=== PATIENT | male | born 1970 | race Caucasian/White ===

== ENCOUNTER 2017-04-16 06:35 | Emergency (ER) | payer SELFPAY ==
[~2017-04-16] VITALS: Ht 165.1 cm; Wt 82.0 kg
[2017-04-16] MEDS ORDERED: ONDANSETRON HCL 4MG/2ML VIAL IV STA (12:47)
[2017-04-16] MEDS ORDERED: MORPHINE SULFATE 4 MG/ML CPJ (NOT FOR IM USE) IV STA (12:47)
[2017-04-16] MEDS ORDERED: SODIUM CHLORIDE 0.9% 1,000 ML IV ONE (12:47)
[2017-04-16 13:12] LABS: BASOPHILS % 0.6 % (0.0-2.0); EOSINOPHILS % 0.3 % (0.0-5.0); HEMATOCRIT. 43.5 % (42.0-52.0); HEMOGLOBIN. 14.4 g/dL (14.0-18.0); LYMPHOCYTES % 17.7 % (20.0-50.0); MEAN CORPUSCULAR HEMOGLOBIN 30.7 pg (28.0-32.0); MEAN CORPUSCULAR VOLUME 92.4 fL (80.0-94.0); MEAN PLATELET VOLUME 7.8 fl (7.4-10.4); MONOCYTES % 11.7 % (2.0-8.0); NEUTROPHILS % 69.7 % (40.0-76.0); PLATELET 455 x1000/uL (130-400); RED CELL DISTRIBUTION WIDTH 13.2 % (11.6-14.6)
[2017-04-16 13:13] LABS: INR 1.2; PROTHROMBIN TIME 12.3 sec (9.4-11.6)
[2017-04-16 13:14] VITALS: BP 141/87
[2017-04-16 13:16] LABS: CARBON DIOXIDE 28 mEq/L (21-32); CHLORIDE 98 mEq/L (98-107)
[2017-04-16] MEDS ORDERED: IOHEXOL-300 100 ML BOTTLE ONE (14:23)
[2017-04-16] MEDS ORDERED: LIDOCAINE HCL 1% 20ML VIAL (Pyxis) INJ MC ONE (15:00)
[2017-04-16] MEDS ORDERED: LIDOCAINE/EPINEPHR/TETRACAINE 3ML TP ONE (15:00)
== END 2017-04-16 18:28 | disposition home or self-care (01) ==
LOC: EDBD → ER 06:35
DX: K61.0 Anal abscess (principal); D72.829 Elevated white blood cell count, unspecified; R79.1 Abnormal coagulation profile
CPT/HCPCS: 36415; 46050; 74177; 80053; 83690; 85025; 85610; 96374; 96375; 99285; J2270; J2405; J3490; J7030; Q9967; Z7610

== ENCOUNTER 2017-04-19 10:02 | Inpatient (IN) | payer SELFPAY ==
[~2017-04-19] VITALS: Ht 312.4 cm; Wt 89.8 kg
[2017-04-19] MEDS ORDERED: MORPHINE SULFATE 4 MG/ML CPJ (NOT FOR IM USE) IV STA (11:34)
[2017-04-19] MEDS ORDERED: ONDANSETRON HCL 4MG/2ML VIAL IV STA (11:34)
[2017-04-19] MEDS ORDERED: PIPERACILLIN/TAZ 3.375G PREMIX 50 ML IV ONE (11:39)
[2017-04-19] MEDS ORDERED: VANCOMYCIN 1 G PREMIX 200 ML IV SCH (11:45)
[2017-04-19] MEDS ORDERED: PIPERACILLIN/TAZOBACTAM 3.375GM/50ML PREMIX IV ONE (11:45)
[2017-04-19 12:15] LABS: BASOPHILS % 0.3 % (0.0-2.0); EOSINOPHILS % 0.4 % (0.0-5.0); HEMATOCRIT. 44.3 % (42.0-52.0); HEMOGLOBIN. 14.6 g/dL (14.0-18.0); LYMPHOCYTES % 10.3 % (20.0-50.0); MEAN CORPUSCULAR HEMOGLOBIN 31.1 pg (28.0-32.0); MEAN CORPUSCULAR VOLUME 94.4 fL (80.0-94.0); MEAN PLATELET VOLUME 7.9 fl (7.4-10.4); MONOCYTES % 7.4 % (2.0-8.0); NEUTROPHILS % 81.6 % (40.0-76.0); PLATELET 388 x1000/uL (130-400); RED BLOOD CELL COUNT 4.69 mill/uL (4.7-6.1); RED CELL DISTRIBUTION WIDTH 13.5 % (11.6-14.6)
[2017-04-19] MEDS ORDERED: ACETAMINOPHEN 325MG TABLET PO PRN (12:30)
[2017-04-19] MEDS ORDERED: MORPHINE SULFATE 4 MG/ML CPJ (NOT FOR IM USE) IV PRN ×3 (12:30→13:15)
[2017-04-19] MEDS ORDERED: ONDANSETRON HCL 4MG/2ML VIAL IV PRN ×3 (12:30→15:00)
[2017-04-19] MEDS ORDERED: HYDROCODONE/ACETAMINOPHEN 5/325MG TABLET PO PRN ×2 (12:30→13:15)
[2017-04-19] MEDS ORDERED: PIPERACILLIN/TAZ 3.375G PREMIX 50 ML IV SCH (12:30)
[2017-04-19 12:34] LABS: CARBON DIOXIDE 27 mEq/L (21-32); CHLORIDE 96 mEq/L (98-107)
[2017-04-19 13:00] LABS: CLARITY URINE CLEAR (CLEAR); COLOR URINE DARK YELLOW (YELLOW); KETONES URINE TRACE (NEGATIVE); LEUKOCYTE ESTERASE URINE TRACE (NEGATIVE); NITRITE URINE POSITIVE (NEGATIVE); OCCULT BLOOD URINE NEGATIVE (NEGATIVE); PROTEIN URINE 1+ (NEGATIVE)
[2017-04-19] MEDS ORDERED: MIDAZOLAM HCL 2 MG/2 ML VIAL ONE (14:49)
[2017-04-19] MEDS ORDERED: FENTANYL CITRATE/PF 50MCG/ML 2ML VIAL ONE ×2 (14:49→15:01)
[2017-04-19] MEDS ORDERED: LABETALOL 5MG/ML SYR 20 MG/4 ML SYRINGE IV PRN (15:00)
[2017-04-19] MEDS ORDERED: MEPERIDINE HCL/PF 25MG/ML CPJ IV PRN (15:00)
[2017-04-19] MEDS ORDERED: HYDROMORPHONE HCL/PF 2MG/ML CPJ IV PRN (15:00)
[2017-04-19] MEDS ORDERED: PROPOFOL 200MG/20ML VIAL IV ONE (15:46)
[2017-04-19 18:00] VITALS: BP 137/71
[2017-04-19 20:00] VITALS: BP 119/72
[2017-04-19 21:00] VITALS: BP 119/72
[2017-04-19] MEDS: DEXT 5%/0.45% NACL KCL 20MEQ/L 1,000 ML IV SCH (21:52)
[2017-04-19] MEDS: PIPERACILLIN/TAZ 3.375G PREMIX 50 ML IV SCH (21:52)
[2017-04-20] VITALS: BP 103/54
[2017-04-20] MEDS: HYDROCODONE/ACETAMINOPHEN 5/325MG TABLET PO PRN ×4 (00:24→19:27)
[2017-04-20] MEDS: PIPERACILLIN/TAZ 3.375G PREMIX 50 ML IV SCH ×4 (03:54→20:27)
[2017-04-20 04:00] VITALS: BP 110/64
[2017-04-20 07:46] VITALS: BP 122/72
[2017-04-20 08:27] LABS: BASOPHILS % 0.1 % (0.0-2.0); EOSINOPHILS % 0.1 % (0.0-5.0); HEMATOCRIT. 38.5 % (42.0-52.0); HEMOGLOBIN. 12.6 g/dL (14.0-18.0); MEAN CORPUSCULAR HEMOGLOBIN 30.7 pg (28.0-32.0); MEAN CORPUSCULAR VOLUME 93.5 fL (80.0-94.0); MEAN PLATELET VOLUME 8.1 fl (7.4-10.4); NEUTROPHILS % 77.8 % (40.0-76.0); PLATELET 378 x1000/uL (130-400); RED BLOOD CELL COUNT 4.12 mill/uL (4.7-6.1); RED CELL DISTRIBUTION WIDTH 13.3 % (11.6-14.6)
[2017-04-20] MEDS: DEXT 5%/0.45% NACL KCL 20MEQ/L 1,000 ML IV SCH (09:28)
[2017-04-20] MEDS ORDERED: DEXTROSE 50% WATER 50ML SYRINGE IV PRN (12:00)
[2017-04-20] MEDS ORDERED: INFLUENZA VIRUS VACCINE 0.5ML SYR IM ONE (12:00)
[2017-04-20] MEDS: BLOOD SUGAR DIAGNOSTIC STRIP TEST SCH ×3 (12:31→20:28)
[2017-04-20] MEDS: INSULIN LISPRO 100 UNITS/ML SUBCUT SCH ×3 (12:51→20:28)
[2017-04-20] MEDS ORDERED: CLIN300C11 PO (12:56)
[2017-04-20] MEDS ORDERED: METF10002 PO (12:56)
[2017-04-20 20:00] VITALS: BP 121/73
[2017-04-21] VITALS: BP 133/77
[2017-04-21] MEDS: PIPERACILLIN/TAZ 3.375G PREMIX 50 ML IV SCH ×3 (02:15→15:00)
[2017-04-21 02:38] VITALS: BP 142/81
[2017-04-21 04:00] VITALS: BP 122/75
[2017-04-21] MEDS: HYDROCODONE/ACETAMINOPHEN 5/325MG TABLET PO PRN ×2 (04:45→09:29)
[2017-04-21] MEDS: DEXT 5%/0.45% NACL KCL 20MEQ/L 1,000 ML IV SCH ×2 (05:57→12:01)
[2017-04-21] MEDS: BLOOD SUGAR DIAGNOSTIC STRIP TEST SCH ×2 (06:32→12:01)
[2017-04-21] MEDS: INSULIN LISPRO 100 UNITS/ML SUBCUT SCH ×2 (07:49→12:01)
[2017-04-21 08:00] VITALS: BP 124/73
[2017-04-21 12:00] VITALS: BP 142/81
[2017-04-21 16:00] VITALS: BP 134/80
== END 2017-04-21 16:55 | disposition home or self-care (01) | DRG 710 ==
LOC: ER 10:58 → EDBD 12:21 → ORIP 12:21 → EDBEDREQ 12:22 → 6EST 18:24
PROVIDERS: ADMIT Internal Medicine; ATTEND Internal Medicine
PROC: 0D9P0ZZ Drainage of Rectum, Open Approach (ICD-10-PCS; principal; 2017-04-19 14:00)
DX: A41.9 Sepsis, unspecified organism (principal); E44.0 Moderate protein-calorie malnutrition; E11.9 Type 2 diabetes mellitus without complications; Z68.1 Body mass index [BMI] 19.9 or less, adult; E87.1 Hypo-osmolality and hyponatremia; K57.90 Diverticulosis of intestine, part unspecified, without perforation or abscess without bleeding; N39.0 Urinary tract infection, site not specified; K61.2 Anorectal abscess
CPT/HCPCS: 36415; 80053; 81001; 82962; 83036; 85025; 87040; 87070; 87075; 87086; 87186; 87205; 90686; 96365; 96367; 96368; 96375; 99285; J1815; J2250; J2270; J2405; J2543; J2704; J3010; J3370; J7030

== ENCOUNTER 2017-04-28 10:31 | Emergency (ER) | payer SELFPAY ==
[~2017-04-28] VITALS: Ht 167.6 cm; Wt 86.0 kg
[~2017-04-28 10:31] MED LIST: CLIN300C11 PO; METF10002 PO
[2017-04-28 12:34] VITALS: BP 129/81
== END 2017-04-28 12:35 | disposition home or self-care (01) ==
LOC: ER 12:03
DX: Z48.817 Encounter for surgical aftercare following surgery on the skin and subcutaneous tissue (principal)
CPT/HCPCS: 99281

== ENCOUNTER 2017-04-30 09:28 | Emergency (ER) | payer SELFPAY ==
[~2017-04-30] VITALS: Ht 154.9 cm; Wt 86.0 kg
[2017-04-30 09:31] VITALS: BP 118/69
[2017-04-30] MEDS ORDERED: BACITRACIN ZINC OINT UDPKT TOP ONE ×2 (13:15→13:30)
== END 2017-04-30 14:59 | disposition home or self-care (01) ==
LOC: ER 09:31
DX: L02.31 Cutaneous abscess of buttock (principal); E11.9 Type 2 diabetes mellitus without complications
CPT/HCPCS: 99283; X7700; Z7610

== ENCOUNTER 2020-07-17 20:31 | Inpatient (IN) | payer MEDICAID, OTHER ==
[~2020-07-17] VITALS: Ht 160 cm; Wt 80.1 kg
[~2020-07-17 20:31] MED LIST changes: -CLIN300C11 PO; +CLIN300C12 PO; +METF-416 PO; -METF10002 PO
[2020-07-17] MEDS ORDERED: DICYCLOMINE 10 MG/5 ML ORAL SYR PO STA (21:25)
[2020-07-17] MEDS ORDERED: MAGNESIUM/ALUMINUM HYDROXIDE/SIMETHICONE 30ML UDC PO STA (21:25)
[2020-07-17 22:46] LABS: HEMATOCRIT. 25.4 % (42.0-52.0); HEMOGLOBIN. 8.3 g/dL (14.0-18.0); MEAN CORPUSCULAR HEMOGLOBIN 24.2 pg (28.0-32.0); MEAN CORPUSCULAR VOLUME 74.4 fL (80.0-94.0); MEAN PLATELET VOLUME 8.5 fl (7.4-10.4); PLATELET 194 x1000/uL (130-400); RED BLOOD CELL COUNT 3.42 mill/uL (4.7-6.1); RED CELL DISTRIBUTION WIDTH 20.1 % (11.6-14.6)
[2020-07-17 22:53] LABS: CHLORIDE 96 mEq/L (98-107)
[2020-07-17 22:58] LABS: CLARITY URINE CLEAR (CLEAR); COLOR URINE ORANGE (YELLOW); KETONES URINE TRACE (NEGATIVE); LEUKOCYTE ESTERASE URINE 1+ (NEGATIVE); NITRITE URINE NEGATIVE (NEGATIVE); OCCULT BLOOD URINE NEGATIVE (NEGATIVE); PH URINE 5.5 (4.5-8.0); PROTEIN URINE 2+ (NEGATIVE); SPECIFIC GRAVITY URINE 1.028 (1.005-1.030)
[2020-07-17 23:07] LABS: PLATELET ESTIMATE NORMAL
[2020-07-18] MEDS ORDERED: ASPIRIN 325MG EC TABLET PO ONE (01:30)
[2020-07-18] MEDS ORDERED: CEFTRIAXONE 1 G PREMIX 50 ML IV ONE (01:30)
[2020-07-18] MEDS ORDERED: POTASSIUM CHLORIDE INJ 40 MEQ in DEXT 5% WATER 250 ML IV ONE (01:30)
[2020-07-18] MEDS ORDERED: POTASSIUM CHLORIDE 20MEQ TABLET SR PO ONE (01:30)
[2020-07-18 01:59] LABS: ETHANOL BLOOD 182 mg/dL
[2020-07-18 02:02] LABS: *AMPHETAMINES SCREEN URINE NEGATIVE (NEGATIVE); *BARBITURATES SCREEN URINE NEGATIVE (NEGATIVE); *BENZODIAZEPINES SCREEN URINE NEGATIVE (NEGATIVE); *COCAINE SCREEN URINE NEGATIVE (NEGATIVE); CANNABINOID URINE SCREEN NEGATIVE (NEGATIVE); METHADONE URINE SCREEN NEGATIVE (NEGATIVE); OPIATES URINE SCREEN NEGATIVE (NEGATIVE); PHENCYCLIDINE URINE SCREEN NEGATIVE (NEGATIVE)
[2020-07-18] MEDS ORDERED: MORPHINE SULFATE 2 MG/ML CPJ (NOT FOR IM USE) IV PRN (06:45)
[2020-07-18] MEDS: LORAZEPAM 2MG/ML CPJ IV PRN ×4 (07:26→20:42)
[2020-07-18] MEDS: SODIUM CHLORIDE 0.9% 1,000 ML IV SCH ×3 (08:30→21:28)
[2020-07-18 10:30] VITALS: BP 158/70
[2020-07-18] MEDS ORDERED: ACETAMINOPHEN 325MG TABLET PO PRN (11:45)
[2020-07-18] MEDS ORDERED: ONDANSETRON HCL 4MG/2ML INJ IV PRN (11:45)
[2020-07-18 12:34] LABS: TOTAL IRON BINDING CAPACITY 316 ug/dL (250-450)
[2020-07-18 12:44] LABS: FERRITIN 17 ng/mL (22-322)
[2020-07-18 12:56] LABS: HEPATITIS B SURFACE ANTIGEN NEGATIVE
[2020-07-18] MEDS: CHLORDIAZEPOXIDE 25MG CAPSULE PO SCH ×2 (13:08→21:28)
[2020-07-18] MEDS: THIAMINE HCL 100MG TABLET PO SCH (13:09)
[2020-07-18 13:33] VITALS: BP 158/70
[2020-07-18 14:25] LABS: HEPATITIS A AB IGM Equiv (NEGATIVE)
[2020-07-18 16:00] VITALS: BP 120/76
[2020-07-18] MEDS ORDERED: DEXTROSE 50% WATER 50ML SYRINGE IV PRN (17:45)
[2020-07-18] MEDS: BLOOD SUGAR DIAGNOSTIC STRIP TEST SCH ×2 (18:06→21:25)
[2020-07-18] MEDS: INSULIN LISPRO 100 UNITS/ML SUBCUT SCH ×2 (18:06→21:27)
[2020-07-18] MEDS: DOCUSATE SODIUM SUGAR FREE 100MG/10ML UDC PO SCH (18:06)
[2020-07-18] MEDS: FERROUS SULFATE 325MG TABLET PO SCH (18:08)
[2020-07-18 18:56] LABS: PHOSPHORUS 2.6 mg/dL (2.5-4.9)
[2020-07-18 20:00] VITALS: BP 128/66
[2020-07-18] MEDS ORDERED: MAGNESIUM 4 G PREMIX 100 ML IV NR (21:00)
[2020-07-18] MEDS: METOPROLOL TARTRATE 50MG TABLET PO SCH (21:25)
[2020-07-19] VITALS: BP 119/73
[2020-07-19] MEDS: LORAZEPAM 2MG/ML CPJ IV PRN ×4 (00:12→17:26)
[2020-07-19] MEDS ORDERED: HALOPERIDOL LACTATE 5MG/ML VIAL IM NR (02:15)
[2020-07-19] MEDS: SODIUM CHLORIDE 0.9% 1,000 ML IV SCH ×3 (03:50→18:00)
[2020-07-19 04:00] VITALS: BP 130/81
[2020-07-19] MEDS: CHLORDIAZEPOXIDE 25MG CAPSULE PO SCH ×3 (05:38→21:11)
[2020-07-19] MEDS: BLOOD SUGAR DIAGNOSTIC STRIP TEST SCH ×4 (06:38→21:13)
[2020-07-19] MEDS: INSULIN LISPRO 100 UNITS/ML SUBCUT SCH ×4 (06:38→21:13)
[2020-07-19 07:33] LABS: HEMATOCRIT. 25.8 % (42.0-52.0); MEAN CORPUSCULAR HEMOGLOBIN 23.8 pg (28.0-32.0); MEAN CORPUSCULAR VOLUME 76.8 fL (80.0-94.0); MEAN PLATELET VOLUME 9.7 fl (7.4-10.4); PLATELET 177 x1000/uL (130-400); RED BLOOD CELL COUNT 3.36 mill/uL (4.7-6.1); RED CELL DISTRIBUTION WIDTH 20.4 % (11.6-14.6)
[2020-07-19 08:00] VITALS: BP 133/86
[2020-07-19 08:03] LABS: CHLORIDE 96 mEq/L (98-107)
[2020-07-19 08:11] LABS: PHOSPHORUS 1.3 mg/dL (2.5-4.9)
[2020-07-19] MEDS: THIAMINE HCL 100MG TABLET PO SCH (08:33)
[2020-07-19] MEDS: FERROUS SULFATE 325MG TABLET PO SCH ×3 (08:33→17:26)
[2020-07-19] MEDS: METOPROLOL TARTRATE 50MG TABLET PO SCH ×2 (08:34→21:12)
[2020-07-19] MEDS: DOCUSATE SODIUM SUGAR FREE 100MG/10ML UDC PO SCH (08:34)
[2020-07-19] MEDS: HALOPERIDOL 5MG TABLET PO PRN (11:15)
[2020-07-19 11:51] LABS: PLATELET ESTIMATE NORMAL
[2020-07-19 12:00] VITALS: BP 141/75
[2020-07-19] MEDS ORDERED: POTASSIUM CHLORIDE 20MEQ TABLET SR PO NR (13:45)
[2020-07-19] MEDS ORDERED: POTASSIUM PHOS,M-BASIC-D-BASIC 20 MMOL in DEXT 5% WATER 243.3333 ML IV SCH (15:00)
[2020-07-19] MEDS: CEFTRIAXONE 1,000 MG in DEXTROSE 5% WATER 50 ML IV SCH (15:18)
[2020-07-19 16:00] VITALS: BP 128/76
[2020-07-19 20:00] VITALS: BP 132/88
[2020-07-20] VITALS: BP 128/70
[2020-07-20] MEDS: SODIUM CHLORIDE 0.9% 1,000 ML IV SCH ×5 (03:25→21:15)
[2020-07-20 04:00] VITALS: BP 139/80
[2020-07-20] MEDS: CHLORDIAZEPOXIDE 25MG CAPSULE PO SCH ×3 (05:26→22:11)
[2020-07-20 06:35] LABS: CHLORIDE 105 mEq/L (98-107)
[2020-07-20 06:40] LABS: PHOSPHORUS 1.9 mg/dL (2.5-4.9)
[2020-07-20] MEDS: BLOOD SUGAR DIAGNOSTIC STRIP TEST SCH ×4 (07:20→20:47)
[2020-07-20] MEDS: INSULIN LISPRO 100 UNITS/ML SUBCUT SCH ×4 (07:20→20:47)
[2020-07-20 07:45] LABS: BASOPHILS % 0.9 % (0.0-2.0); EOSINOPHILS % 0.9 % (0.0-5.0); HEMATOCRIT. 25.4 % (42.0-52.0); HEMOGLOBIN. 7.8 g/dL (14.0-18.0); LYMPHOCYTES % 15.5 % (20.0-50.0); MEAN CORPUSCULAR HEMOGLOBIN 23.8 pg (28.0-32.0); MEAN CORPUSCULAR VOLUME 77.7 fL (80.0-94.0); MEAN PLATELET VOLUME 9.7 fl (7.4-10.4); MONOCYTES % 9.3 % (2.0-8.0); NEUTROPHILS % 73.4 % (40.0-76.0); PLATELET 200 x1000/uL (130-400); RED BLOOD CELL COUNT 3.27 mill/uL (4.7-6.1); RED CELL DISTRIBUTION WIDTH 20.7 % (11.6-14.6)
[2020-07-20 08:00] VITALS: BP 139/82
[2020-07-20] MEDS: DOCUSATE SODIUM SUGAR FREE 100MG/10ML UDC PO SCH (08:57)
[2020-07-20] MEDS: FERROUS SULFATE 325MG TABLET PO SCH ×3 (08:57→18:40)
[2020-07-20] MEDS: THIAMINE HCL 100MG TABLET PO SCH (08:58)
[2020-07-20] MEDS: METOPROLOL TARTRATE 50MG TABLET PO SCH ×2 (08:58→20:49)
[2020-07-20] MEDS: LORAZEPAM 2MG/ML CPJ IV PRN (12:18)
[2020-07-20] MEDS ORDERED: POTASSIUM-SODIUM PHOSPHATE POWDER PACKET PO NR (14:45)
[2020-07-20] MEDS: HALOPERIDOL 5MG TABLET PO PRN (15:18)
[2020-07-20] MEDS: CEFTRIAXONE 1,000 MG in DEXTROSE 5% WATER 50 ML IV SCH (15:18)
[2020-07-20 16:00] VITALS: BP 101/66
[2020-07-20 20:00] VITALS: BP 113/73
[2020-07-21] VITALS: BP 126/77
[2020-07-21] MEDS: LORAZEPAM 2MG/ML CPJ IV PRN ×4 (02:02→19:14)
[2020-07-21] MEDS: SODIUM CHLORIDE 0.9% 1,000 ML IV SCH ×2 (03:51→15:00)
[2020-07-21 04:00] VITALS: BP 133/80
[2020-07-21] MEDS: CHLORDIAZEPOXIDE 25MG CAPSULE PO SCH ×3 (06:36→22:48)
[2020-07-21] MEDS: BLOOD SUGAR DIAGNOSTIC STRIP TEST SCH ×4 (06:41→21:26)
[2020-07-21] MEDS: INSULIN LISPRO 100 UNITS/ML SUBCUT SCH ×4 (06:42→21:26)
[2020-07-21 07:37] LABS: HEMATOCRIT. 24.6 % (42.0-52.0); HEMOGLOBIN. 7.5 g/dL (14.0-18.0); MEAN CORPUSCULAR HEMOGLOBIN 24.7 pg (28.0-32.0); MEAN CORPUSCULAR VOLUME 80.8 fL (80.0-94.0); MEAN PLATELET VOLUME 8.9 fl (7.4-10.4); PLATELET 227 x1000/uL (130-400); RED BLOOD CELL COUNT 3.04 mill/uL (4.7-6.1); RED CELL DISTRIBUTION WIDTH 20.8 % (11.6-14.6)
[2020-07-21 07:51] LABS: CHLORIDE 107 mEq/L (98-107)
[2020-07-21 08:00] VITALS: BP 153/91
[2020-07-21] MEDS: THIAMINE HCL 100MG TABLET PO SCH (08:26)
[2020-07-21] MEDS: DOCUSATE SODIUM SUGAR FREE 100MG/10ML UDC PO SCH (08:26)
[2020-07-21] MEDS: FERROUS SULFATE 325MG TABLET PO SCH ×3 (08:28→18:15)
[2020-07-21] MEDS: METOPROLOL TARTRATE 50MG TABLET PO SCH ×2 (08:28→22:47)
[2020-07-21 12:00] VITALS: BP 153/88
[2020-07-21] MEDS: CEFTRIAXONE 1,000 MG in DEXTROSE 5% WATER 50 ML IV SCH (15:01)
[2020-07-21 16:00] VITALS: BP 143/90
[2020-07-21] MEDS ORDERED: POTASSIUM CHLORIDE 20MEQ TABLET SR PO NR (17:15)
[2020-07-21] MEDS ORDERED: POTASSIUM CHLORIDE INJ 40 MEQ in DEXT 5% WATER 250 ML IV ONE (18:30)
[2020-07-21 20:00] VITALS: BP 122/87
[2020-07-21 22:27] LABS: PLATELET ESTIMATE NORMAL
[2020-07-22] VITALS: BP 100/65
[2020-07-22] MEDS: SODIUM CHLORIDE 0.9% 1,000 ML IV SCH ×3 (01:30→11:05)
[2020-07-22] MEDS: LORAZEPAM 2MG/ML CPJ IV PRN ×3 (02:30→21:50)
[2020-07-22 04:00] VITALS: BP 151/94
[2020-07-22] MEDS: CHLORDIAZEPOXIDE 25MG CAPSULE PO SCH ×3 (06:37→21:06)
[2020-07-22 06:53] LABS: HEMATOCRIT. 26.5 % (42.0-52.0); HEMOGLOBIN. 8.1 g/dL (14.0-18.0); MEAN CORPUSCULAR HEMOGLOBIN 24.9 pg (28.0-32.0); MEAN CORPUSCULAR VOLUME 81.5 fL (80.0-94.0); MEAN PLATELET VOLUME 9.1 fl (7.4-10.4); PLATELET 250 x1000/uL (130-400); RED BLOOD CELL COUNT 3.24 mill/uL (4.7-6.1); RED CELL DISTRIBUTION WIDTH 20.8 % (11.6-14.6)
[2020-07-22 06:54] LABS: CHLORIDE 103 mEq/L (98-107)
[2020-07-22 07:02] LABS: PHOSPHORUS 2.5 mg/dL (2.5-4.9)
[2020-07-22] MEDS: INSULIN LISPRO 100 UNITS/ML SUBCUT SCH ×4 (07:40→21:00)
[2020-07-22] MEDS: BLOOD SUGAR DIAGNOSTIC STRIP TEST SCH ×4 (07:47→21:07)
[2020-07-22 08:00] VITALS: BP 126/70
[2020-07-22] MEDS ORDERED: POTASSIUM CHLORIDE 20MEQ TABLET SR PO SCH (08:45)
[2020-07-22] MEDS: THIAMINE HCL 100MG TABLET PO SCH (09:19)
[2020-07-22] MEDS: DOCUSATE SODIUM SUGAR FREE 100MG/10ML UDC PO SCH (09:19)
[2020-07-22] MEDS: METOPROLOL TARTRATE 50MG TABLET PO SCH ×2 (09:19→21:07)
[2020-07-22] MEDS: FERROUS SULFATE 325MG TABLET PO SCH ×3 (09:19→18:17)
[2020-07-22] MEDS ORDERED: POTASSIUM CHLORIDE INJ 40 MEQ in DEXT 5% WATER 250 ML IV SCH (11:00)
[2020-07-22 12:00] VITALS: BP 140/86
[2020-07-22 14:17] LABS: PLATELET ESTIMATE NORMAL
[2020-07-22] MEDS: CEFTRIAXONE 1,000 MG in DEXTROSE 5% WATER 50 ML IV SCH (15:42)
[2020-07-22 16:00] VITALS: BP 135/78
[2020-07-22] MEDS ORDERED: MAGNESIUM 2 G PREMIX 50 ML IV NR (16:30)
[2020-07-22 20:00] VITALS: BP 123/80
[2020-07-23] VITALS: BP 118/77
[2020-07-23 04:00] VITALS: BP 130/66
[2020-07-23] MEDS: BLOOD SUGAR DIAGNOSTIC STRIP TEST SCH ×4 (06:25→21:07)
[2020-07-23] MEDS: CHLORDIAZEPOXIDE 25MG CAPSULE PO SCH ×2 (06:27→13:57)
[2020-07-23 07:30] LABS: CHLORIDE 104 mEq/L (98-107)
[2020-07-23 07:39] LABS: HEMATOCRIT. 26.7 % (42.0-52.0); HEMOGLOBIN. 8.4 g/dL (14.0-18.0); MEAN CORPUSCULAR HEMOGLOBIN 26.2 pg (28.0-32.0); MEAN CORPUSCULAR VOLUME 83.7 fL (80.0-94.0); MEAN PLATELET VOLUME 9.2 fl (7.4-10.4); PLATELET 267 x1000/uL (130-400); RED BLOOD CELL COUNT 3.19 mill/uL (4.7-6.1); RED CELL DISTRIBUTION WIDTH 21.7 % (11.6-14.6)
[2020-07-23] MEDS: INSULIN LISPRO 100 UNITS/ML SUBCUT SCH ×4 (07:40→21:00)
[2020-07-23 08:00] VITALS: BP 137/91
[2020-07-23] MEDS: POTASSIUM CHLORIDE 20MEQ TABLET SR PO SCH (08:56)
[2020-07-23] MEDS: METOPROLOL TARTRATE 50MG TABLET PO SCH ×2 (08:56→21:07)
[2020-07-23] MEDS: THIAMINE HCL 100MG TABLET PO SCH (08:56)
[2020-07-23] MEDS: FERROUS SULFATE 325MG TABLET PO SCH ×4 (08:56→17:35)
[2020-07-23] MEDS: DOCUSATE SODIUM SUGAR FREE 100MG/10ML UDC PO SCH (08:57)
[2020-07-23 09:28] LABS: PLATELET ESTIMATE NORMAL
[2020-07-23 12:00] VITALS: BP 138/81
[2020-07-23] MEDS: CEFTRIAXONE 1,000 MG in DEXTROSE 5% WATER 50 ML IV SCH (14:11)
[2020-07-23 16:00] VITALS: BP 142/91
[2020-07-23 20:00] VITALS: BP 140/81
[2020-07-24] VITALS: BP 138/60
[2020-07-24 00:43] LABS: T4 FREE 1.5 ng/dL (0.76-1.46)
[2020-07-24 01:30] LABS: FOLIC ACID (FOLATE) SERUM 14.9 ng/mL (>5.38)
[2020-07-24 04:00] VITALS: BP 129/80
[2020-07-24] MEDS: BLOOD SUGAR DIAGNOSTIC STRIP TEST SCH ×4 (05:47→21:00)
[2020-07-24] MEDS: INSULIN LISPRO 100 UNITS/ML SUBCUT SCH ×4 (06:36→21:00)
[2020-07-24 07:05] LABS: HEMATOCRIT. 26.8 % (42.0-52.0); HEMOGLOBIN. 8.2 g/dL (14.0-18.0); MEAN CORPUSCULAR HEMOGLOBIN 26.2 pg (28.0-32.0); MEAN CORPUSCULAR VOLUME 85.6 fL (80.0-94.0); MEAN PLATELET VOLUME 9.1 fl (7.4-10.4); PLATELET 328 x1000/uL (130-400); RED BLOOD CELL COUNT 3.14 mill/uL (4.7-6.1); RED CELL DISTRIBUTION WIDTH 23.1 % (11.6-14.6)
[2020-07-24 07:41] LABS: CHLORIDE 104 mEq/L (98-107)
[2020-07-24 08:00] VITALS: BP 130/70
[2020-07-24] MEDS: FERROUS SULFATE 325MG TABLET PO SCH ×3 (08:38→16:54)
[2020-07-24] MEDS: POTASSIUM CHLORIDE 20MEQ TABLET SR PO SCH (08:38)
[2020-07-24] MEDS: MULTIVITAMINS,THER W-MINERALS TABLET PO SCH (08:39)
[2020-07-24] MEDS: DOCUSATE SODIUM SUGAR FREE 100MG/10ML UDC PO SCH (08:39)
[2020-07-24] MEDS: FOLIC ACID 1MG TABLET PO SCH (08:39)
[2020-07-24] MEDS: THIAMINE HCL 100MG TABLET PO SCH (08:39)
[2020-07-24] MEDS: METOPROLOL TARTRATE 50MG TABLET PO SCH ×2 (08:39→22:24)
[2020-07-24 12:00] VITALS: BP 121/85
[2020-07-24] MEDS ORDERED: POTASSIUM CHLORIDE INJ 40 MEQ in DEXT 5% WATER 250 ML IV ONE (15:00)
[2020-07-24 16:00] VITALS: BP 143/86
[2020-07-24] MEDS ORDERED: MAGNESIUM 2 G PREMIX 50 ML IV NR (17:00)
[2020-07-24 19:55] LABS: PLATELET ESTIMATE NORMAL
[2020-07-24 20:00] VITALS: BP 149/84
[2020-07-24] MEDS: LACTULOSE 20G/30ML UDC PO SCH (22:22)
[2020-07-25] VITALS: BP 138/77
[2020-07-25 04:00] VITALS: BP 142/89
[2020-07-25] MEDS: LACTULOSE 20G/30ML UDC PO SCH ×3 (06:00→21:00)
[2020-07-25] MEDS: BLOOD SUGAR DIAGNOSTIC STRIP TEST SCH ×4 (06:26→20:45)
[2020-07-25] MEDS: INSULIN LISPRO 100 UNITS/ML SUBCUT SCH ×4 (06:51→20:45)
[2020-07-25 06:58] LABS: HEMATOCRIT. 27.9 % (42.0-52.0); HEMOGLOBIN. 8.7 g/dL (14.0-18.0); MEAN CORPUSCULAR HEMOGLOBIN 26.9 pg (28.0-32.0); MEAN PLATELET VOLUME 9.3 fl (7.4-10.4); PLATELET 368 x1000/uL (130-400); RED BLOOD CELL COUNT 3.24 mill/uL (4.7-6.1); RED CELL DISTRIBUTION WIDTH 25.3 % (11.6-14.6)
[2020-07-25] MEDS: FERROUS SULFATE 325MG TABLET PO SCH ×3 (07:15→17:31)
[2020-07-25 08:00] VITALS: BP 169/76
[2020-07-25 08:59] LABS: CHLORIDE 108 mEq/L (98-107)
[2020-07-25 09:04] LABS: PHOSPHORUS 3.3 mg/dL (2.5-4.9)
[2020-07-25] MEDS: DOCUSATE SODIUM SUGAR FREE 100MG/10ML UDC PO SCH (09:13)
[2020-07-25] MEDS: POTASSIUM CHLORIDE 20MEQ TABLET SR PO SCH ×3 (09:14→17:32)
[2020-07-25] MEDS: THIAMINE HCL 100MG TABLET PO SCH (09:14)
[2020-07-25] MEDS: MAGNESIUM OXIDE 400MG TABLET PO SCH (09:14)
[2020-07-25] MEDS: MULTIVITAMINS,THER W-MINERALS TABLET PO SCH (09:15)
[2020-07-25] MEDS: FOLIC ACID 1MG TABLET PO SCH (09:15)
[2020-07-25] MEDS: METOPROLOL TARTRATE 50MG TABLET PO SCH ×2 (09:15→21:00)
[2020-07-25 12:00] VITALS: BP 116/76
[2020-07-25 12:54] LABS: PLATELET ESTIMATE NORMAL
[2020-07-25 16:00] VITALS: BP 122/77
[2020-07-25 20:00] VITALS: BP 129/82
[2020-07-26] VITALS: BP 128/76
[2020-07-26 04:00] VITALS: BP 126/81
[2020-07-26] MEDS: LACTULOSE 20G/30ML UDC PO SCH ×2 (06:13→14:17)
[2020-07-26] MEDS: BLOOD SUGAR DIAGNOSTIC STRIP TEST SCH ×2 (07:07→12:10)
[2020-07-26] MEDS: INSULIN LISPRO 100 UNITS/ML SUBCUT SCH ×2 (07:07→12:40)
[2020-07-26 07:42] LABS: BASOPHILS % 0.7 % (0.0-2.0); EOSINOPHILS % 2.9 % (0.0-5.0); HEMATOCRIT. 29.8 % (42.0-52.0); HEMOGLOBIN. 9.1 g/dL (14.0-18.0); LYMPHOCYTES % 17.8 % (20.0-50.0); MEAN CORPUSCULAR HEMOGLOBIN 26.1 pg (28.0-32.0); MEAN CORPUSCULAR VOLUME 85.9 fL (80.0-94.0); MEAN PLATELET VOLUME 9.4 fl (7.4-10.4); MONOCYTES % 12.3 % (2.0-8.0); NEUTROPHILS % 66.3 % (40.0-76.0); PLATELET 445 x1000/uL (130-400); RED BLOOD CELL COUNT 3.47 mill/uL (4.7-6.1); RED CELL DISTRIBUTION WIDTH 25.8 % (11.6-14.6)
[2020-07-26 07:42] LABS: CHLORIDE 103 mEq/L (98-107)
[2020-07-26] MEDS: DOCUSATE SODIUM SUGAR FREE 100MG/10ML UDC PO SCH (10:31)
[2020-07-26] MEDS: FERROUS SULFATE 325MG TABLET PO SCH ×2 (10:31→14:17)
[2020-07-26] MEDS: MAGNESIUM OXIDE 400MG TABLET PO SCH (10:31)
[2020-07-26] MEDS: FOLIC ACID 1MG TABLET PO SCH (10:31)
[2020-07-26] MEDS: METOPROLOL TARTRATE 50MG TABLET PO SCH (10:32)
[2020-07-26] MEDS: MULTIVITAMINS,THER W-MINERALS TABLET PO SCH (10:32)
[2020-07-26] MEDS: POTASSIUM CHLORIDE 20MEQ TABLET SR PO SCH (10:32)
[2020-07-26] MEDS: THIAMINE HCL 100MG TABLET PO SCH (10:32)
[2020-07-26 15:53] VITALS: BP 143/89
== END 2020-07-26 17:30 | DRG 48 ==
LOC: ER 20:31 → 8WST 07-18 01:18 → ENRESERV 07-18 07:41 → 8WST 07-18 09:07
PROVIDERS: ADMIT Internal Medicine Nephrology; ATTEND Internal Medicine Nephrology
DX: G90.8 Other disorders of autonomic nervous system (principal); G92 Toxic encephalopathy; E43 Unspecified severe protein-calorie malnutrition; N17.9 Acute kidney failure, unspecified; E87.8 Other disorders of electrolyte and fluid balance, not elsewhere classified; E87.1 Hypo-osmolality and hyponatremia; E11.9 Type 2 diabetes mellitus without complications; D63.8 Anemia in other chronic diseases classified elsewhere; F10.129 Alcohol abuse with intoxication, unspecified; K76.0 Fatty (change of) liver, not elsewhere classified; Y90.6 Blood alcohol level of 120-199 mg/100 ml; I10 Essential (primary) hypertension; N39.0 Urinary tract infection, site not specified; Z20.822 Contact with and (suspected) exposure to COVID-19; E87.6 Hypokalemia; F10.130 Alcohol abuse with withdrawal, uncomplicated; Z71.41 Alcohol abuse counseling and surveillance of alcoholic; Z79.899 Other long term (current) drug therapy; Z78.1 Physical restraint status; Z68.31 Body mass index [BMI] 31.0-31.9, adult
CPT/HCPCS: 36415; 71045; 76705; 80048; 80053; 80305; 80320; 81003; 82140; 82270; 82607; 82728; 82746; 82962; 83036; 83540; 83550; 83735; 84100; 84132; 84439; 84443; 84481; 84484; 85025; 86705; 86709; 86803; 87077; 87340; 87426; 93005; 93306; 97162; 97166; 99291; J0696; J1630; J1815; J2060; J2270; J3475; J3480; J3490; J7030; J7060; A4315; G0480

== ENCOUNTER 2024-05-21 10:44 | Inpatient (IN) | payer OTHER, MEDICAID ==
[~2024-05-21] VITALS: Ht 160 cm; Wt 79.0 kg
[~2024-05-21 10:44] MED LIST changes: +CLIN-194 PO; -CLIN300C12 PO
[2024-05-21] MEDS ORDERED: CHLORDIAZEPOXIDE 25MG CAPSULE PO ONE (11:30)
[2024-05-21 11:58] LABS: BASOPHILS % 0.7 % (0.0-2.0); DIFFERENTIAL COMMENT 0; EOSINOPHILS % 0.2 % (0.0-5.0); LYMPHOCYTES % 16.4 % (20.0-50.0); MEAN CORPUSCULAR HEMOGLOBIN 25.1 pg (28.0-32.0); MEAN CORPUSCULAR HGB CONC 30.4 g/dL (31.0-37.0); MEAN CORPUSCULAR VOLUME 82.4 fL (80.0-94.0); MEAN PLATELET VOLUME 8.9 fl (7.4-10.4); MONOCYTES % 8.4 % (2.0-8.0); NEUTROPHILS % 74.3 % (40.0-76.0); PLATELET 233 x1000/uL (130-400); RED BLOOD CELL COUNT 2.12 mill/uL (4.7-6.1); RED CELL DISTRIBUTION WIDTH 18.5 % (11.6-14.6); WHITE BLOOD COUNT 8.5 x1000/uL (4.5-11.0)
[2024-05-21 12:05] LABS: CHLORIDE 99 mEq/L (98-107); SODIUM 132 mEq/L (136-145)
[2024-05-21 12:06] LABS: CARBON DIOXIDE 18 mEq/L (21-32)
[2024-05-21 12:09] LABS: HEMATOCRIT. 17.5 % (42.0-52.0); HEMOGLOBIN. 5.3 g/dL (14.0-18.0)
[2024-05-21 12:11] LABS: CREATININE 0.7 mg/dL (0.6-1.3)
[2024-05-21 12:12] LABS: ETHANOL BLOOD 100 mg/dL (<10); UREA NITROGEN BLOOD 8 mg/dL (9-23)
[2024-05-21 12:13] LABS: ALANINE AMINOTRANSFERASE 29 IU/L (10-49); ALBUMIN 3.2 g/dL (3.2-4.8); ASPARTATE AMINOTRANSFERASE 68 IU/L (<34)
[2024-05-21] MEDS ORDERED: OCTREOTIDE 1,000 MCG in SODIUM CHLORIDE 0.9% 100 ML IV STA (12:13)
[2024-05-21] MEDS: OCTREOTIDE ACETATE 50 MCG/ML 1ML IV STA (12:13)
[2024-05-21 12:14] LABS: BILIRUBIN DIRECT 0.3 mg/dL (<=3.0); BILIRUBIN TOTAL 0.7 mg/dL (0.1-1.0); PHOSPHORUS 3.6 mg/dL (2.5-4.9); PROTEIN TOTAL 6.2 g/dL (6.0-8.3)
[2024-05-21] MEDS: SODIUM CHLORIDE 0.9% 1,000 ML IV ONE (12:17)
[2024-05-21 12:23] LABS: INR 1.1; PROTHROMBIN TIME 12.6 sec (9.6-11.0)
[2024-05-21 12:31] LABS: GLUCOSE 362 mg/dL (70-105)
[2024-05-21 12:32] LABS: TROPONIN I HIGH SENSITIVITY < 4 ng/L (3.0-53)
[2024-05-21] MEDS: LORAZEPAM 2MG/ML INJ IV ONE (12:40)
[2024-05-21] MEDS: PANTOPRAZOLE SODIUM 40 MG/VIAL IV STA (12:42)
[2024-05-21] MEDS: OCTREOTIDE 1,000 MCG in SODIUM CHLORIDE 0.9% 98 ML IV SCH (13:00)
[2024-05-21] MEDS ORDERED: FOLIC ACID 1 MG, THIAMINE HCL 100 MG, MVI, ADULT NO.1 10 ML in DEXTROSE 5% WATER 1,000 ML IV ONE (13:15)
[2024-05-21] MEDS ORDERED: FOLIC ACID 1 MG, THIAMINE HCL 100 MG, MVI, ADULT NO.1 10 ML in SODIUM CHLORIDE 0.45% 1,... IV NR (13:15)
[2024-05-21] MEDS ORDERED: HYDRALAZINE HCL 10MG TABLET PO PRN (14:30)
[2024-05-21] MEDS ORDERED: IPRATROPIUM/ALBUTEROL 0.5-3(2.5)MG/3ML NEB HHN PRN (14:30)
[2024-05-21] MEDS ORDERED: DEXTROSE 50% WATER 50ML SYRINGE IV PRN (14:45)
[2024-05-21] MEDS ORDERED: PHENOBARBITAL 30 MG TABLET PO PRN ×2 (14:45)
[2024-05-21] MEDS ORDERED: PHENOBARBITAL 60MG TABLET PO PRN (14:45)
[2024-05-21] MEDS ORDERED: LORAZEPAM 1MG TABLET PO PRN ×3 (14:45)
[2024-05-21] MEDS ORDERED: CHLORDIAZEPOXIDE 25MG CAPSULE PO PRN (14:45)
[2024-05-21] MEDS ORDERED: MAGNESIUM 1 G PREMIX 100 ML IV NR (15:19)
[2024-05-21 16:47] VITALS: BP 111/54; PULSE 123; RESP 23; TEMP 36.00288
[2024-05-21 17:00] VITALS: BP 118/53; PULSE 116; RESP 20; TEMP 36.00288
[2024-05-21] MEDS: CHLORDIAZEPOXIDE 25MG CAPSULE PO NR (17:39)
[2024-05-21] MEDS: BLOOD SUGAR DIAGNOSTIC STRIP TEST SCH (17:47)
[2024-05-21 18:15] VITALS: BP 131/85; PULSE 128; RESP 20; TEMP 36.00288
[2024-05-21] MEDS: INSULIN LISPRO 100 UNITS/ML SUBCUT SCH (18:32)
[2024-05-21 18:47] VITALS: BP 118/60; PULSE 114; RESP 20; TEMP 37.00296
[2024-05-21] MEDS: PANTOPRAZOLE SODIUM 40 MG/VIAL IV SCH (21:36)
[2024-05-21 21:53] LABS: BASOPHILS % 0.3 % (0.0-2.0); DIFFERENTIAL COMMENT 0; LYMPHOCYTES % 8.4 % (20.0-50.0); MEAN CORPUSCULAR HEMOGLOBIN 27.9 pg (28.0-32.0); MEAN CORPUSCULAR HGB CONC 32.2 g/dL (31.0-37.0); MEAN CORPUSCULAR VOLUME 86.5 fL (80.0-94.0); MEAN PLATELET VOLUME 8.2 fl (7.4-10.4); MONOCYTES % 14.3 % (2.0-8.0); PLATELET 172 x1000/uL (130-400); RED BLOOD CELL COUNT 1.72 mill/uL (4.7-6.1); RED CELL DISTRIBUTION WIDTH 17.1 % (11.6-14.6); WHITE BLOOD COUNT 10.9 x1000/uL (4.5-11.0)
[2024-05-21 22:28] LABS: HEMATOCRIT. 14.8 % (42.0-52.0); HEMOGLOBIN. 4.8 g/dL (14.0-18.0)
[2024-05-21] MEDS ORDERED: IOHEXOL-300 100 ML BOTTLE ONE (23:08)
[2024-05-21 23:51] VITALS: BP 105/51; PULSE 119; RESP 18; TEMP 37.05852
[2024-05-21 23:58] VITALS: BP 105/51; PULSE 119; RESP 18; TEMP 37.05852
[2024-05-22] VITALS (18 sets, daily range): BP systolic 101–130; BP diastolic 53–80; PULSE 85–131; RESP 18–20; TEMP 36.1–37.16964; O2SAT 97–100
[2024-05-22 07:18] LABS: CHLORIDE 103 mEq/L (98-107); POTASSIUM 4.2 mEq/L (3.5-5.1); SODIUM 135 mEq/L (136-145)
[2024-05-22 07:19] LABS: CALCIUM 7.2 mg/dL (8.7-10.4); CARBON DIOXIDE 27 mEq/L (21-32)
[2024-05-22 07:23] LABS: IRON 77 ug/dL (65-175)
[2024-05-22 07:24] LABS: CREATININE 0.7 mg/dL (0.6-1.3); GLUCOSE 274 mg/dL (70-105); UREA NITROGEN BLOOD 17 mg/dL (9-23)
[2024-05-22 07:26] LABS: PHOSPHORUS 3.3 mg/dL (2.5-4.9); TOTAL IRON BINDING CAPACITY 275 ug/dl (250-425)
[2024-05-22 08:22] LABS: FOLIC ACID (FOLATE) SERUM 11.76 ng/mL (>5.38)
[2024-05-22 08:30] LABS: VITAMIN B12 SERUM 559 pg/mL (211-911)
[2024-05-22 08:33] LABS: HEPATITIS B SURFACE ANTIGEN NEGATIVE (Negative)
[2024-05-22] MEDS: FOLIC ACID 1MG TABLET PO SCH (08:41)
[2024-05-22] MEDS: MULTIVITAMINS,THER W-MINERALS TABLET PO SCH (08:42)
[2024-05-22] MEDS: THIAMINE HCL 100 MG/1 ML 2ML VIAL IM SCH (08:42)
[2024-05-22 08:54] LABS: HEPATITIS B CORE AB IGM NEGATIVE (Negative)
[2024-05-22 08:55] LABS: HEPATITIS C AB NON REACTIVE (Neg) (Negative)
[2024-05-22 09:54] LABS: HEPATITIS A AB IGM EQUIVOCAL (Negative)
[2024-05-22 10:00] LABS: BASOPHILS % 0.4 % (0.0-2.0); DIFFERENTIAL COMMENT 0; EOSINOPHILS % 0.1 % (0.0-5.0); LYMPHOCYTES % 14.9 % (20.0-50.0); MEAN CORPUSCULAR HEMOGLOBIN 28.3 pg (28.0-32.0); MEAN CORPUSCULAR HGB CONC 32.4 g/dL (31.0-37.0); MEAN CORPUSCULAR VOLUME 87.6 fL (80.0-94.0); MONOCYTES % 12.6 % (2.0-8.0); PLATELET 171 x1000/uL (130-400); RED BLOOD CELL COUNT 2.38 mill/uL (4.7-6.1); WHITE BLOOD COUNT 9.2 x1000/uL (4.5-11.0)
[2024-05-22 10:32] LABS: HEMOGLOBIN. 6.7 g/dL (14.0-18.0)
[2024-05-22 10:33] LABS: HEMATOCRIT. 20.8 % (42.0-52.0)
[2024-05-22 12:43] LABS: HEMATOCRIT 20.1 % (42.0-52.0); HEMOGLOBIN 6.6 g/dL (14.0-18.0)
[2024-05-22] MEDS: CHLORDIAZEPOXIDE 25MG CAPSULE PO PRN ×2 (16:53→22:25)
[2024-05-22] MEDS: MAGNESIUM 2 G PREMIX 50 ML IV NR (16:53)
[2024-05-22 19:02] LABS: HEMATOCRIT 22.9 % (42.0-52.0); HEMOGLOBIN 7.2 g/dL (14.0-18.0)
[2024-05-22 22:23] LABS: HEMOGLOBIN 7.2 g/dL (14.0-18.0)
[2024-05-23] VITALS (17 sets, daily range): BP systolic 94–125; BP diastolic 33–69; PULSE 86–112; RESP 18–20; TEMP 36.6696–37.2252; O2SAT 99–100
[2024-05-23 08:19] LABS: CHLORIDE 100 mEq/L (98-107); POTASSIUM 3.9 mEq/L (3.5-5.1); SODIUM 131 mEq/L (136-145)
[2024-05-23 08:20] LABS: CALCIUM 7.5 mg/dL (8.7-10.4); CARBON DIOXIDE 23 mEq/L (21-32)
[2024-05-23 08:25] LABS: CREATININE 0.6 mg/dL (0.6-1.3); GLUCOSE 170 mg/dL (70-105); UREA NITROGEN BLOOD 16 mg/dL (9-23)
[2024-05-23 08:41] LABS: BASOPHILS % 0.3 % (0.0-2.0); DIFFERENTIAL COMMENT 0; EOSINOPHILS % 1.1 % (0.0-5.0); LYMPHOCYTES % 23.1 % (20.0-50.0); MEAN CORPUSCULAR HGB CONC 32.8 g/dL (31.0-37.0); MEAN CORPUSCULAR VOLUME 85.4 fL (80.0-94.0); MEAN PLATELET VOLUME 8.9 fl (7.4-10.4); MONOCYTES % 11.1 % (2.0-8.0); NEUTROPHILS % 64.4 % (40.0-76.0); PLATELET 165 x1000/uL (130-400); RED BLOOD CELL COUNT 2.01 mill/uL (4.7-6.1); RED CELL DISTRIBUTION WIDTH 20.3 % (11.6-14.6); WHITE BLOOD COUNT 8.8 x1000/uL (4.5-11.0)
[2024-05-23 10:48] LABS: HEMOGLOBIN. 5.6 g/dL (14.0-18.0)
[2024-05-23 10:49] LABS: HEMATOCRIT. 17.1 % (42.0-52.0)
[2024-05-23 18:39] LABS: HEMOGLOBIN 7.1 g/dL (14.0-18.0)
[2024-05-23] MEDS: TRAZODONE HCL 50MG TABLET PO PRN (20:35)
[2024-05-24] VITALS (8 sets, daily range): BP systolic 102–128; BP diastolic 62–75; PULSE 78–89; RESP 15–19; TEMP 36.28068–36.7; O2SAT 99–100
[2024-05-24 06:09] LABS: CARBON DIOXIDE 24 mEq/L (21-32); CHLORIDE 102 mEq/L (98-107)
[2024-05-24 06:10] LABS: POTASSIUM 3.9 mEq/L (3.5-5.1); SODIUM 134 mEq/L (136-145)
[2024-05-24 06:11] LABS: CALCIUM 8.1 mg/dL (8.7-10.4)
[2024-05-24 06:15] LABS: CREATININE 0.7 mg/dL (0.6-1.3); GLUCOSE 227 mg/dL (70-105)
[2024-05-24 06:16] LABS: UREA NITROGEN BLOOD 9 mg/dL (9-23)
[2024-05-24 06:26] LABS: BASOPHILS % 0.3 % (0.0-2.0); EOSINOPHILS % 1.8 % (0.0-5.0); HEMATOCRIT. 21.2 % (42.0-52.0); LYMPHOCYTES % 17.7 % (20.0-50.0); MEAN CORPUSCULAR HGB CONC 33.1 g/dL (31.0-37.0); MEAN CORPUSCULAR VOLUME 87.6 fL (80.0-94.0); MEAN PLATELET VOLUME 8.6 fl (7.4-10.4); MONOCYTES % 10.4 % (2.0-8.0); NEUTROPHILS % 69.8 % (40.0-76.0); PLATELET 233 x1000/uL (130-400); RED BLOOD CELL COUNT 2.42 mill/uL (4.7-6.1); RED CELL DISTRIBUTION WIDTH 18.4 % (11.6-14.6); WHITE BLOOD COUNT 8.5 x1000/uL (4.5-11.0)
[2024-05-24] MEDS: THIAMINE HCL 100MG TABLET PO SCH (08:06)
[2024-05-25] VITALS (13 sets, daily range): BP systolic 102–130; BP diastolic 60–78; PULSE 79–97; RESP 16–20; TEMP 36.3–37.11408; O2SAT 97–100
[2024-05-25 01:49] LABS: HEMATOCRIT 19.8 % (42.0-52.0); HEMOGLOBIN 6.5 g/dL (14.0-18.0)
[2024-05-25] MEDS: SODIUM CHLORIDE 0.9% 1,000 ML IV SCH (02:48)
[2024-05-25 08:07] LABS: ALPHA FETOPROTEIN TUMOR MARKER 4.3 ng/mL (0.0-8.4); CARCINOEMBRYONIC AG - SEND OUT 3.3 ng/mL (0.0-4.7)
[2024-05-25 08:27] LABS: BASOPHILS % 0.3 % (0.0-2.0); EOSINOPHILS % 2.5 % (0.0-5.0); HEMATOCRIT. 26.3 % (42.0-52.0); HEMOGLOBIN. 8.8 g/dL (14.0-18.0); LYMPHOCYTES % 21.1 % (20.0-50.0); MEAN CORPUSCULAR HEMOGLOBIN 30.5 pg (28.0-32.0); MEAN CORPUSCULAR HGB CONC 33.4 g/dL (31.0-37.0); MEAN CORPUSCULAR VOLUME 91.3 fL (80.0-94.0); MEAN PLATELET VOLUME 8.6 fl (7.4-10.4); NEUTROPHILS % 65.1 % (40.0-76.0); PLATELET 239 x1000/uL (130-400); RED BLOOD CELL COUNT 2.88 mill/uL (4.7-6.1); RED CELL DISTRIBUTION WIDTH 17.5 % (11.6-14.6); WHITE BLOOD COUNT 8.3 x1000/uL (4.5-11.0)
[2024-05-25 08:43] LABS: CARBON DIOXIDE 26 mEq/L (21-32); CHLORIDE 104 mEq/L (98-107); POTASSIUM 3.6 mEq/L (3.5-5.1); SODIUM 137 mEq/L (136-145)
[2024-05-25 08:45] LABS: CALCIUM 7.8 mg/dL (8.7-10.4)
[2024-05-25 08:48] LABS: CREATININE 0.5 mg/dL (0.6-1.3); GLUCOSE 177 mg/dL (70-105)
[2024-05-25 08:49] LABS: UREA NITROGEN BLOOD 5 mg/dL (9-23)
[2024-05-25 17:11] LABS: BASOPHILS % 0.4 % (0.0-2.0); HEMOGLOBIN. 9.5 g/dL (14.0-18.0); LYMPHOCYTES % 16.4 % (20.0-50.0); MEAN CORPUSCULAR HEMOGLOBIN 30.3 pg (28.0-32.0); MEAN CORPUSCULAR HGB CONC 33.9 g/dL (31.0-37.0); MEAN CORPUSCULAR VOLUME 89.5 fL (80.0-94.0); MEAN PLATELET VOLUME 8.6 fl (7.4-10.4); NEUTROPHILS % 69.2 % (40.0-76.0); PLATELET 235 x1000/uL (130-400); RED BLOOD CELL COUNT 3.13 mill/uL (4.7-6.1); RED CELL DISTRIBUTION WIDTH 16.5 % (11.6-14.6); WHITE BLOOD COUNT 6.5 x1000/uL (4.5-11.0)
[2024-05-25 17:19] LABS: CHLORIDE 105 mEq/L (98-107); SODIUM 136 mEq/L (136-145)
[2024-05-25 17:20] LABS: CALCIUM 7.8 mg/dL (8.7-10.4); CARBON DIOXIDE 25 mEq/L (21-32)
[2024-05-25 17:25] LABS: CREATININE 0.5 mg/dL (0.6-1.3); GLUCOSE 195 mg/dL (70-105)
[2024-05-25 17:26] LABS: PROTHROMBIN TIME 11.5 sec (9.6-11.0)
[2024-05-25 17:38] LABS: UREA NITROGEN BLOOD < 5 mg/dL (9-23)
[2024-05-26 00:27] VITALS: BP 121/79; PULSE 98; RESP 19; TEMP 36.4; O2SAT 98
[2024-05-26 04:28] VITALS: BP 126/70; PULSE 96; RESP 20; TEMP 36.4; O2SAT 98
[2024-05-26 08:02] VITALS: BP 130/77; PULSE 107; RESP 20; TEMP 35.7; O2SAT 100
[2024-05-26 08:06] LABS: BASOPHILS % 0.6 % (0.0-2.0); EOSINOPHILS % 2.5 % (0.0-5.0); HEMATOCRIT. 25.4 % (42.0-52.0); HEMOGLOBIN. 8.4 g/dL (14.0-18.0); LYMPHOCYTES % 17.2 % (20.0-50.0); MEAN CORPUSCULAR HGB CONC 33.2 g/dL (31.0-37.0); MEAN CORPUSCULAR VOLUME 90.3 fL (80.0-94.0); MEAN PLATELET VOLUME 7.9 fl (7.4-10.4); MONOCYTES % 10.7 % (2.0-8.0); PLATELET 241 x1000/uL (130-400); RED BLOOD CELL COUNT 2.82 mill/uL (4.7-6.1); RED CELL DISTRIBUTION WIDTH 16.6 % (11.6-14.6); WHITE BLOOD COUNT 6.7 x1000/uL (4.5-11.0)
[2024-05-26 08:30] LABS: CARBON DIOXIDE 24 mEq/L (21-32); CHLORIDE 107 mEq/L (98-107); SODIUM 139 mEq/L (136-145)
[2024-05-26 08:31] LABS: CALCIUM 7.8 mg/dL (8.7-10.4)
[2024-05-26 08:36] LABS: CREATININE 0.5 mg/dL (0.6-1.3); GLUCOSE 157 mg/dL (70-105)
[2024-05-26 08:49] LABS: UREA NITROGEN BLOOD < 5 mg/dL (9-23)
[2024-05-26 12:03] VITALS: BP 130/76; PULSE 87; RESP 18; TEMP 36.6; O2SAT 100
[2024-05-26] MEDS: POTASSIUM CHLORIDE 20MEQ TABLET SR PO SCH (13:10)
[2024-05-26 16:10] VITALS: BP 149/91; PULSE 82; RESP 18; TEMP 36.7; O2SAT 98
[2024-05-26 16:46] LABS: HEMATOCRIT 30.1 % (42.0-52.0); HEMOGLOBIN 9.9 g/dL (14.0-18.0)
[2024-05-26 20:00] VITALS: BP 128/78; PULSE 83; RESP 19; TEMP 36.2; O2SAT 98
[2024-05-26 20:43] LABS: HEMOGLOBIN 9.5 g/dL (14.0-18.0)
[2024-05-27] VITALS: BP 155/85; PULSE 83; RESP 20; TEMP 36.3; O2SAT 100
[2024-05-27 00:55] LABS: HEMATOCRIT 25.6 % (42.0-52.0); HEMOGLOBIN 8.6 g/dL (14.0-18.0)
[2024-05-27 04:00] VITALS: BP 138/87; PULSE 93; RESP 19; TEMP 36.6; O2SAT 100
[2024-05-27 06:23] LABS: CALCIUM 8.2 mg/dL (8.7-10.4); CARBON DIOXIDE 28 mEq/L (21-32); CHLORIDE 108 mEq/L (98-107); POTASSIUM 4.1 mEq/L (3.5-5.1); SODIUM 142 mEq/L (136-145)
[2024-05-27 06:29] LABS: CREATININE 0.6 mg/dL (0.6-1.3); GLUCOSE 155 mg/dL (70-105)
[2024-05-27 06:55] LABS: UREA NITROGEN BLOOD < 5 mg/dL (9-23)
[2024-05-27 07:10] LABS: BASOPHILS % 0.7 % (0.0-2.0); EOSINOPHILS % 3.3 % (0.0-5.0); HEMOGLOBIN. 8.7 g/dL (14.0-18.0); LYMPHOCYTES % 21.9 % (20.0-50.0); MEAN CORPUSCULAR HEMOGLOBIN 30.3 pg (28.0-32.0); MEAN CORPUSCULAR HGB CONC 33.6 g/dL (31.0-37.0); MEAN CORPUSCULAR VOLUME 90.2 fL (80.0-94.0); MEAN PLATELET VOLUME 8.4 fl (7.4-10.4); MONOCYTES % 12.1 % (2.0-8.0); PLATELET 324 x1000/uL (130-400); RED BLOOD CELL COUNT 2.89 mill/uL (4.7-6.1); RED CELL DISTRIBUTION WIDTH 16.6 % (11.6-14.6); WHITE BLOOD COUNT 8.4 x1000/uL (4.5-11.0)
[2024-05-27 08:00] VITALS: BP 142/69; PULSE 80; RESP 18; TEMP 36.6; O2SAT 98
[2024-05-27] MEDS ORDERED: DEXTROSE 50% WATER 50ML SYRINGE IV NR (10:04)
[2024-05-27] MEDS ORDERED: PROT40 MT (10:57)
[2024-05-27 11:21] VITALS: BP 115/79; PULSE 80; TEMP 98.1; O2SAT 100
[2024-05-27 11:27] VITALS: BP 114/79; PULSE 80; RESP 18; TEMP 36.7; O2SAT 100
[2024-05-27 11:52] LABS: HEMATOCRIT 25.6 % (42.0-52.0); HEMOGLOBIN 8.4 g/dL (14.0-18.0)
[2024-05-27 15:01] VITALS: BP 138/83; PULSE 88; RESP 18; TEMP 36.7; O2SAT 100
== END 2024-05-27 19:00 | disposition home or self-care (01) | DRG 244 ==
LOC: ER 10:46 → EDBEDREQTM 13:52 → EDBEDREQ 13:52 → 7WST 20:47
PROVIDERS: ADMIT Internal Medicine; ATTEND Internal Medicine
PROC: 30233N1 Transfusion of Nonautologous Red Blood Cells into Peripheral Vein, Percutaneous Approach (ICD-10-PCS; principal; 2024-05-21)
PROC: 30233K1 Transfusion of Nonautologous Frozen Plasma into Peripheral Vein, Percutaneous Approach (ICD-10-PCS; 2024-05-23)
DX: K57.31 Diverticulosis of large intestine without perforation or abscess with bleeding (principal); G93.41 Metabolic encephalopathy; E11.65 Type 2 diabetes mellitus with hyperglycemia; D64.9 Anemia, unspecified; F10.239 Alcohol dependence with withdrawal, unspecified; G47.00 Insomnia, unspecified; K74.60 Unspecified cirrhosis of liver; I10 Essential (primary) hypertension; Y90.9 Presence of alcohol in blood, level not specified; J44.9 Chronic obstructive pulmonary disease, unspecified; Z91.148 Patient's other noncompliance with medication regimen for other reason; Z79.4 Long term (current) use of insulin; Z79.899 Other long term (current) drug therapy
CPT/HCPCS: 36415; 71045; 74174; 76700; 80048; 80076; 80320; 82010; 82105; 82270; 82378; 82607; 82746; 82962; 83036; 83540; 83550; 83735; 84100; 84484; 85014; 85018; 85025; 85044; 86705; 86709; 86850; 86900; 86920; 86927; 87340; 93005; 99285; A4606; J1815; J2060; J2354; J2470; J3411; J3475; J3490; J7030; J7050; J7070; P9016; P9017; Q9967; G0480